=== PATIENT | female | born 1990 | race American Indian/Alaskan Native ===

== ENCOUNTER 2022-04-18 20:40 | Emergency (ER) | payer OTHER ==
[2022-04-19] MEDS ORDERED: LIDOCAINE-MPF (1%) 10 MG/1 ML VIAL 5 ML INFILTRATI ONE (01:56)
[2022-04-19] MEDS ORDERED: traMADol 50 MG TAB PO ONE (01:56)
[2022-04-19] MEDS ORDERED: cephALEXin 500 MG CAP PO ONE (01:56)
--- NOTE | 2022-04-19 02:29 | Emergency Department Report ---
ED General Adult HPI - General Chief complaint: Wound/Laceration Stated complaint: LUMP UNDER ARM Time Seen by Provider: 04/19/22 01:55 Source: patient Mode of arrival: Ambulatory Limitations: No Limitations - History of Present Illness Initial comments: Patient 31-year-old female with history of hydradenitis who presents for right axillary abscess x3 days. Patient states mild purulent drainage firm fluctuant to touch pain is rated at 5/10. Patient denies fevers chills or rigors. Patient does not have diabetes. Severity scale (0 -10): 10 - Related Data Previous Rx's Medication Instructions Recorded Last Taken Type cephALEXin [Keflex] 500 mg PO Q8HR 7 Days #21 cap 04/19/22 Unknown Rx traMADoL [Ultram] 50 mg PO Q6HR PRN #12 tablet 04/19/22 Unknown Rx Allergies Allergy/AdvReac Type Severity Reaction Status Date / Time No Known Allergies Allergy Unverified 04/18/22 22:14 ED Review of Systems ROS: Stated complaint: LUMP UNDER ARM Other details as noted in HPI Constitutional: denies: chills, fever Eyes: denies: eye pain, eye discharge, vision change ENT: denies: ear pain, throat pain Respiratory: denies: cough, shortness of breath, wheezing Cardiovascular: denies: chest pain, palpitations Endocrine: no symptoms reported Gastrointestinal: denies: abdominal pain, nausea, diarrhea Genitourinary: denies: urgency, dysuria, discharge Musculoskeletal: denies: back pain, joint swelling, arthralgia Skin: other (Right axillary abscess 1 x 2 cm) Neurological: denies: headache, weakness, paresthesias Psychiatric: denies: anxiety, depression Hematological/Lymphatic: denies: easy bleeding, easy bruising ED Past Medical Hx - Medications Home Medications: Home Medications Medication Instructions Recorded Confirmed Last Taken Type cephALEXin [Keflex] 500 mg PO Q8HR 7 Days #21 cap 04/19/22 Unknown Rx traMADoL [Ultram] 50 mg PO Q6HR PRN #12 tablet 04/19/22 Unknown Rx ED Physical Exam - General Limitations: No Limitations General appearance: alert, in no apparent distress - Head Head exam: Present: atraumatic, normocephalic - Eye Eye exam: Present: normal appearance, EOMI Pupils: Present: normal accommodation - ENT ENT exam: Present: mucous membranes moist - Neck Neck exam: Present: normal inspection, full ROM. Absent: tenderness - Respiratory Respiratory exam: Present: normal lung sounds bilaterally. Absent: respiratory distress - Cardiovascular Cardiovascular Exam: Present: regular rate, normal rhythm, normal heart sounds. Absent: systolic murmur, diastolic murmur, rubs, gallop - GI/Abdominal GI/Abdominal exam: Present: soft, normal bowel sounds - Extremities Exam Extremities exam: Present: normal inspection, full ROM, tenderness (Right axillary abscess 1 x 2 cm fluctuant erythema pain to touch) - Back Exam Back exam: Present: normal inspection, full ROM. Absent: CVA tenderness (R), CVA tenderness (L) - Neurological Exam Neurological exam: Present: alert, oriented X3 - Expanded Neurological Exam Expanded Best Eye Response (Othello): (4) open spontaneously Best Motor Response (Othello): (6) obeys commands Best Verbal Response (Luke): (5) oriented Othello Total: 15 - Psychiatric Psychiatric exam: Present: normal affect, normal mood - Skin Skin exam: Present: warm, dry, normal color, other (Abscess as well). Absent: rash ED Course Vital Signs 04/18/22 04/18/22 22:08 22:15 Temperature 98.5 F 98.5 F Pulse Rate 69 61 Respiratory 16 16 Rate Blood Pressure 107/66 Blood Pressure 107/66 [Right] O2 Sat by Pulse 100 98 Oximetry - I & D Right Arm Type of Procedure: Simple (Right axillary abscess 1 x 2 cm erythema pain fluctuant) Site: Right axillary Blade Size: 11 I & D Procedure: betadine prep, sterile drapes applied, sterile dressing applied Progress: Right axillary abscess 1 to 2 cm erythema fluctuance pain to touch. Site cleaned Betadine solution anesthesia with 1% lidocaine x3 cc anesthesia is achieved. Incision with 11 blade scalpel. Moderate purulent bloody drainage. Loculations broken up with six-inch blunt forceps. Wound irrigated with sterile saline x20 cc. Sterile dressing applied. All bleeding is controlled. Patient given aftercare instructions patient verbalized agreement and understanding of same. Patient tolerated procedure with minimal distress. ED Medical Decision Making - Medical Decision Making Patient for I&D of right axillary abscess see procedure note. Sterile dressing remains intact all bleeders controlled patient tolerated procedure with minimal distress. Patient will be DC'd home in stable condition at this time with prescriptions. Patient given wound care instructions including symptoms of infection. And daily dressing changes. Patient DC'd home in stable condition at this time. Critical care attestation.: If time is entered above; I have spent that time in minutes in the direct care of this critically ill patient, excluding procedure time. ED Disposition Clinical Impression: Abscess of right axilla Disposition: HOME / SELF CARE / HOMELESS Is pt being admited?: No Does the pt Need Aspirin: No Condition: Stable Instructions: Incision and Drainage, Skin Abscess, [id number] Additional Instructions: Take medications as prescribed, follow-up with your doctor in 2 to 3 days. Return to emergency department if symptoms worsen. Prescriptions: cephALEXin [Keflex] 500 mg PO Q8HR 7 Days #21 cap traMADoL [Ultram] 50 mg PO Q6HR PRN #12 tablet PRN Reason: Pain Referrals: TIGRE LUND MD [Staff Physician] - 3-5 Days Forms: Work/School Release Form(ED) Time of Disposition: 02:39
[2022-04-19 03:10] VITALS: BP 126/72
== END 2022-04-19 02:59 | disposition home or self-care (01) ==
LOC: ED 20:40
DX: L02.411 Cutaneous abscess of right axilla (principal); Z79.899 Other long term (current) drug therapy
CPT/HCPCS: 10060; 99282; J3490